=== PATIENT | female | born 1960 | race Caucasian/White ===

== ENCOUNTER → 2016-12-02 14:33 | Outpatient (CLI) | payer MEDICARE ==
[2013-01-29 12:25] VITALS: BMI 44.0
== END | disposition home or self-care (01) ==
LOC: D.MAMMO 10:00
DX: Z12.31 Encounter for screening mammogram for malignant neoplasm of breast (principal)

== ENCOUNTER 2019-04-26 08:00 | Outpatient (CLI) | payer MEDICARE ==
[2013-01-29 12:25] VITALS: BMI 44.0
== END 2019-04-26 23:59 | disposition home or self-care (01) ==
LOC: D.MAMMO 08:00
PROVIDERS: ATTEND Family Medicine
DX: Z12.31 Encounter for screening mammogram for malignant neoplasm of breast (principal)